=== PATIENT | female | born 1945 | race Caucasian/White ===

== ENCOUNTER 2019-11-25 06:05 | Emergency (ER) | payer MEDICARE ==
[2019-11-25 06:20] VITALS: TEMP 98
[2019-11-25] MEDS ORDERED: HYDROcodone/APAP 5-325MG 1 EACH TAB PO STA (06:28)
[2019-11-25] MEDS ORDERED: PROPOFOL 10 MG/ML 20 ML VIAL IV STA (06:43)
--- NOTE | 2019-11-25 06:51 | ED ---
Upper Extremity HPI <Mari Barnes - Last Filed: 11/25/19 07:03> - General Source: patient, RN notes reviewed Mode of arrival: ambulatory Limitations: no limitations <Scar Garcia - Last Filed: 11/25/19 07:15> - General Chief Complaint: Extremity Injury, Upper Stated Complaint: shoulder dislocation Time Seen by Provider: 11/25/19 06:24 - History of Present Illness Initial Comments: 73-year-old female presents to the emergency Department with chief complaint of a fall. Patient complains of right shoulder pain after a fall. She fell with her arm outstretched. Denies any head injury no loss conscious. She states she has lungs range of motion right shoulder in which this is her dominant side. Patient denies any prior fractures. Denies any prior dislocations. No paresthesias. (Scar Garcia) - Related Data Home Medications Medication Instructions Recorded Confirmed FLUoxetine HCL [PROzac] 10 mg PO DAILY 06/10/15 06/10/15 Losartan/Hydrochlorothiazide 1 dose PO DAILY 06/10/15 06/10/15 [Hyzaar 100-12.5 Tablet] Simvastatin [Zocor] 40 mg PO HS 06/10/15 06/10/15 Allergies Allergy/AdvReac Type Severity Reaction Status Date / Time No Known Allergies Allergy Verified 11/25/19 06:20 Review of Systems ROS Other: All systems not noted in ROS Statement are negative. <Mari Barnes - Last Filed: 11/25/19 07:03> ROS Other: All systems not noted in ROS Statement are negative. <Scar Garcia - Last Filed: 11/25/19 07:15> ROS Statement: Those systems with pertinent positive or pertinent negative responses have been documented in the HPI. Past Medical History Past Medical History: Hypertension Additional Past Medical History / Comment(s): HYPERCHOLESTREMIA History of Any Multi-Drug Resistant Organisms: None Reported Additional Past Surgical History / Comment(s): CATARACT Past Psychological History: No Psychological Hx Reported Smoking Status: Never smoker Past Alcohol Use History: None Reported Past Drug Use History: None Reported <Scar Garcia - Last Filed: 11/25/19 07:15> General Exam Limitations: no limitations General appearance: alert, in no apparent distress Head exam: Present: atraumatic, normocephalic, normal inspection Eye exam: Present: normal appearance, PERRL, EOMI. Absent: scleral icterus, conjunctival injection, periorbital swelling ENT exam: Present: normal exam, normal oropharynx, mucous membranes moist Neck exam: Present: normal inspection, full ROM. Absent: tenderness, meningismus, lymphadenopathy Respiratory exam: Present: normal lung sounds bilaterally, decreased breath sounds. Absent: respiratory distress, wheezes, rales, rhonchi, stridor Cardiovascular Exam: Present: regular rate, normal rhythm, normal heart sounds. Absent: systolic murmur, diastolic murmur, rubs, gallop, clicks Extremities exam: Present: other (Right shoulder there is limited range of motion, there is mild sulcus, neurovascular intact, no tenderness distal humeral region, right forearm) <Scar Garcia M - Last Filed: 11/25/19 07:15> Course Vital Signs 11/25/19 11/25/19 11/25/19 06:13 06:53 07:01 Temperature 98 F Pulse Rate 95 66 71 Respiratory 18 16 12 Rate Blood Pressure 133/69 163/84 139/86 O2 Sat by Pulse 97 100 95 Oximetry 11/25/19 07:06 Temperature Pulse Rate 61 Respiratory 14 Rate Blood Pressure 144/76 O2 Sat by Pulse 97 Oximetry Procedures - Procedural Sedation Procedural Sedation Start Time: 06:58 Procedural Sedation Stop Time: 07:20 Indications: fracture/dislocation reduction ASA Class: II Mallampati Airway Score: 2 Preparation: environmental monitoring specialist applied, pulse oximeter, capnometry used, supplemental O2 applied, suction/airway equipment at bedside, IV secured IV Propofol Dose (mgs): 120 Complications: none Interventions: oxygen applied Patient Tolerated Procedure: well, no complications <Mari Barnes P - Last Filed: 11/25/19 07:03> - Orthopedic Joint Reduction Joint #1 Consent Obtained: written consent Side: right Joint Reduction Location: shoulder Analgesia: procedural sedation Shoulder Technique Used (if applicable): traction/counter-traction, scapula manipulation Post-Reduction Neuro Exam: intact Post-Reduction Vascular Exam: intact Post Reduction X-Ray Obtained: Yes Post Reduction X-Ray Results: reduced Splint Applied: Yes Patient Tolerated Procedure: well, no complications <Scar Garcia M - Last Filed: 11/25/19 07:15> - Orthopedic Joint Reduction Joint #1 Additional Comments: Sling applied (Scar Garcia) Medical Decision Making <Scar Garcia - Last Filed: 11/25/19 07:15> - Medical Decision Making 73-year-old female presents emergency from for fall right shoulder pain. Patient has a right shoulder dislocation. Patient shoulder was reduced and will follow-up with orthopedics. (Scar Garcia) Disposition <Mari Barnes - Last Filed: 11/25/19 07:03> Is patient prescribed a controlled substance at d/c from ED?: No Time of Disposition: 07:14 <Scar Garcia - Last Filed: 11/25/19 07:15> Clinical Impression: Dislocation of right shoulder joint Disposition: HOME SELF-CARE Condition: Stable Instructions (If sedation given, give patient instructions): Shoulder Di slocation (ED) Additional Instructions: Please return to the Emergency Department if symptoms worsen or any other concerns. Referrals: Kiana Mosqueda MD [Primary Care Provider] - 1-2 days Scar Nolbes DO [Doctor of Osteopathic Medicine] - 1-2 days
--- NOTE | 2019-11-25 06:55 | XR ---
EXAM: XR Right Shoulder Complete, 2 or More Views CLINICAL HISTORY: ITS.REASON XR Reason: pain TECHNIQUE: Two or more views of the right shoulder. COMPARISON: No relevant prior studies available. FINDINGS/IMPRESSION: Anterior-inferior shoulder dislocation. No definite fracture however, post-reduction views are recommended. Degenerative changes of the acromioclavicular joint.
[2019-11-25 07:13] VITALS: RESP 14
[2019-11-25 07:14] VITALS: BP 130/71; PULSE 62
[2019-11-25] MEDS ORDERED: ACET/COD 300 MG/30 MG STARTER PACK 6 TAB BTL PO STA (07:15)
--- NOTE | 2019-11-25 08:09 | XR ---
Right shoulder HISTORY: Post reduction Single frontal view of the right shoulder correlated prior exam same date earlier time There's been interval reduction of patient's shoulder dislocation. Acromion is superimposed over the humeral head which could possibly be projectional, as indicated consider additional views. No evident fracture. IMPRESSION: Post reduction as described.
== END 2019-11-25 07:42 | disposition home or self-care (01) ==
LOC: EC 06:05
DX: S43.004A Unspecified dislocation of right shoulder joint, initial encounter (principal); I10 Essential (primary) hypertension; E78.00 Pure hypercholesterolemia, unspecified; Z79.899 Other long term (current) drug therapy; W01.0XXA Fall on same level from slipping, tripping and stumbling without subsequent striking against object, initial encounter; Y92.009 Unspecified place in unspecified non-institutional (private) residence as the place of occurrence of the external cause
CPT/HCPCS: 99283; 99152; 23650; 96374; 73020; 73030; J2704

== ENCOUNTER → 2023-03-29 | Outpatient (CLI) | payer MEDICARE ==
--- NOTE | 2023-03-29 12:13 | P.SLEEP ---
History of Present Illness DATE: 03/29/2023 CONSULTATION/NEW PATIENT EVALUATION HISTORY OF PRESENT ILLNESS/SLEEP-WAKE EVALUATION: 77-year-old lady had been evaluated in the sleep center for possible obstructive sleep apnea hypopnea syndrome. SLEEP SCHEDULE: Usually sleep schedule from 10 PM to 6 AM 7 days a week. FALLING ASLEEP: No problems with falling asleep, no TV in bedroom. DURING SLEEP: Patient sleeps in different positions with snoring and multiple awakenings from sleep. No history of nocturia. No history of hypnogogical hallucinations, sleep paralysis, or cataplexy. DURING THE DAY/WAKE STATE: In the morning patient wake up tired. Frostproof sleepiness scale is 3. Patient may take nap at 2 PM. PAST MEDICAL HISTORY: Hypertension, depression, glaucoma, knee arthritis, hyperlipidemia. PAST SURGICAL HISTORY: Bilateral surgery for cataract, surgery for nasal septum deviation. MEDICATIONS: Simvastatin 40 mg once a day, Prozac 10 mg once a day, losartan/ hydrochlorothiazide 100-12.5 mg, eyedrops. SOCIAL HISTORY: Negative for smoking or using alcohol. FAMILY HISTORY:Hypertension, hyperlipidemia, arthritis, cancer, diabetes, thyroid problems. REVIEW OF SYSTEMS:Snoring, multiple awakenings from sleep. No fevers. No double vision. No recent chest pain. No shortness of breath. No abdominal pain. No bleeding episodes. No blood in urine. No seizure episodes. PHYSICAL EXAMINATION: GENERAL: A pleasant patient without any distress. VITAL SIGNS: BP 105/67 , HR 88 , RR 18 , weight 205.2 pounds, height 5 foot 6 inches, body mass index 33.0 . HEENT: PERRLA, EOMI. Evaluation of oropharynx showed tongue protrudes midline, low position of soft palate Mallampati 4. NECK: Supple. No JVD. Thyroid is not palpable. 15-1/3 inches in circumference. LUNGS: Clear to percussion and to auscultation. Good air exchange. No wheezing or rhonchi. HEART: S1, S2 regular. No murmurs, gallops or rubs. ABDOMEN: Soft and nontender. Bowel sounds are present. No organomegaly appreciated. EXTREMITIES: No clubbing or cyanosis. POLISHING MACHINE OPERATOR: Awake, alert, and oriented x3. Cranial nerves 2 to 7 intact. There is no fasciculation or atrophy noted. No focal deficits observed. ASSESSMENT: 1. Snoring, multiple awakenings from sleep, extremely low position of soft palate. Obstructive sleep apnea hypopnea syndrome . 2. Mild obesity, BMI 33.0 . 3. Hypertension . 4. Depression . 5 hyperlipidemia . 6 . History of glaucoma . 7. History of knee arthritis . 8. Status post bilateral cataract surgery . 9 . Status post surgical treatment for nasal septum deviation . PLAN: 1. Polysomnography for evaluation of patient's breathing during sleep. 2. Following plan after reading sleep test. Patient would like to consider oral appliances. 3. Preferable position during sleep on the side. 4. No driving if patient feels any sleepiness. Patient is aware of civil and criminal liability for unsafe driving. 5. Sleep hygiene with regular sleep time for at least 7.5-8 hours. 6. Watching weight. Thank you very much for referring this patient for consultation. Sincerely, Landon Bradshaw MD, PhD, FAASM. Diplomat of [place] [employer], Sleep Medicine Board by [place] [employer] [place] [employer] Claim Professional of [facility] [place] Past Medical History Past Medical History: Hypertension Additional Past Medical History / Comment(s): HYPERCHOLESTREMIA History of Any Multi-Drug Resistant Organisms: None Reported Additional Past Surgical History / Comment(s): CATARACT Past Psychological History: No Psychological Hx Reported Past Alcohol Use History: None Reported Past Drug Use History: None Reported Medications and Allergies Home Medications Medication Instructions Recorded Confirmed Type FLUoxetine HCL [PROzac] 10 mg PO DAILY 06/10/15 06/10/15 History Losartan/Hydrochlorothiazide 1 dose PO DAILY 06/10/15 06/10/15 History [Hyzaar 100-12.5 Tablet] Simvastatin [Zocor] 40 mg PO HS 06/10/15 06/10/15 History Allergies Allergy/AdvReac Type Severity Reaction Status Date / Time No Known Allergies Allergy Verified 11/25/19 06:20 Sleep Note - Sleep Note Sleep Note: Temperature: Pulse Rate: Respiratory Rate: Blood Pressure: SpO2: Height: Weight: BMI: Neck Circumference:
== END ==
LOC: 3 N SLEEP 11:01
PROVIDERS: ATTEND Internal Medicine
DX: G47.33 Obstructive sleep apnea (adult) (pediatric) (principal); E66.9 Obesity, unspecified; I10 Essential (primary) hypertension; F32.A Depression, unspecified; E78.00 Pure hypercholesterolemia, unspecified; E78.5 Hyperlipidemia, unspecified; J34.2 Deviated nasal septum; Z68.33 Body mass index [BMI] 33.0-33.9, adult; Z87.39 Personal history of other diseases of the musculoskeletal system and connective tissue; Z98.41 Cataract extraction status, right eye; Z98.42 Cataract extraction status, left eye; Z98.890 Other specified postprocedural states; Z79.899 Other long term (current) drug therapy
CPT/HCPCS: 99202

== ENCOUNTER 2023-05-10 19:28 | Outpatient (CLI) | payer MEDICARE ==
--- NOTE | 2023-05-17 15:13 | P.PCN ---
Description of Procedure: POLYSOMNOGRAPHY REPORT PROCEDURE(S)/DATE(S): Polysomnography 05/10/2023 CLINICAL: Patient has been seen in the sleep center for evaluation of obstructive sleep apnea-hypopnea syndrome. Please see my consultation. Sleep study has been done for evaluation of patient breathing during the sleep. PROCEDURE: The standard montage for clinical polysomnography included the electroencephalogram, the electrooculogram, the mentalis surface electromyography and Lead II cardiography. The respiratory battery consisted of measurements of nasal/buccal air flow, pressure transducer measurements from nose, thoracic and/or abdominal effort and intercostal surface electromyography. Video monitoring has been done to check for any parasomnia events. Nocturnal oxyhemoglobin saturations were obtained by finger oximetry. Step-chow titration with positive airway pressure was utilized to control the respiratory events, if necessary. RESULTS: During the diagnostic sleep study sleep efficiency was extremely short 52.6 %. Latency to sleep onset was significantly prolonged to 54.5 min. Sleep architecture showed stage NI was slightly increased 8.9 %, Delta sleep was absent 0 %, REM sleep was absent 0 %. Respiratory channel showed 0 obstructive apneas, 0 mixed apneas, 0 central apneas, 0 hypopneas with lowest oxygen level 88%. Total apnea hypopnea index was 0. Heart rate was in the range between 67 and 74, average 70. EMG showed 34.2 periodic limb movements per hour with 0 micro-arousals per hour. IMPRESSIONS: 1. No significant respiratory abnormalities have been documented during the sleep study, no significant oxygen desaturation during sleep. 2. Significant periodic limb movements have been documented, but without related micro-arousals. 3. Loud snoring have been documented during the sleep study. Please see other impressions from consultation PLAN: 1. I will see patient for follow-up visit to explain results of the test and recommendations. 2. Losing weight program. 3. Sleep hygiene with regular time in bed for at least 7-1/2 hours. 4. No driving if feeling sleepiness. 5. Please check iron profile including ferritin level. Low level of iron may increase the risk for periodic limb movements. Thank you very much for allowing me to participate in the management of your patient. Sincerely, Landon Bradshaw MD, PhD, FAASM. Diplomat of [place] [employer], Sleep Medicine Board by [place] [employer] Inspector [employer] [facility] [place]
== END 2023-05-11 05:20 | disposition home or self-care (01) ==
LOC: 3 N SLEEP 19:28
PROVIDERS: ATTEND Internal Medicine
DX: G47.33 Obstructive sleep apnea (adult) (pediatric) (principal); G47.61 Periodic limb movement disorder; R06.83 Snoring
CPT/HCPCS: 95810

== ENCOUNTER 2023-12-31 13:58 | Emergency (ER) | payer MEDICARE ==
[2023-12-31] MEDS ORDERED: HYDROcodone/APAP 7.5-325MG 1 EACH TAB ONE (14:21)
[2023-12-31] MEDS ORDERED: LIDOCAINE 1% INJ 10MG/ML (20 ML MDV) ONE (14:22)
[2023-12-31] MEDS ORDERED: ACETAMINOPHEN TAB 325 MG TAB ONE (14:22)
[2023-12-31] MEDS ORDERED: ACET/COD 300 MG/30 MG STARTER PACK 6 TAB BTL PO ONE (16:50)
--- NOTE | 2024-01-22 16:01 | CT ---
Patient Shanna Blanton ID [id number] Order # EXAMINATION TYPE: CT brain althea ribera DATE OF EXAM: 12/31/2023 COMPARISON: No comparison available on downtime PACS. HISTORY: Fall, hit concrete CT DLP: 1411.9 mGycm, Automated exposure control for dose reduction was used. CONTRAST: Patient injected with 0 mL of Isovue 300. CT of the brain is performed utilizing 3 mm thick sections through the posterior fossa and 3 mm thick sections through the remaining calvarium. Study is performed within 24 hours of arrival to the hospital. No abnormal hyperdensity is present to suggest an acute intracranial hemorrhage. No mass lesion is evident. No acute infarcts are evident. Ventricles and sulci are appropriate for the patient age. No acute fractures are evident. Paranasal sinuses and mastoid air cells within the [id number] are clear. IMPRESSIONS: 1. No acute intracranial process. Follow-up MRI can be performed as clinically indicated. 2. There may be some mild periventricular white matter changes. CT cervical spine. COMPARISON: None CT of the cervical spine is performed in the axial plane at 2 mm thick sections. Reconstructed image s in the coronal, and sagittal plane are reviewed on the computer. No acute fractures are evident. Vertebral body alignment is normal. Degenerative disc changes present with loss of disc height for C4-5 C5-6 and C6-7. Vertebral body heights are preserved. No spinal canal stenosis is evident. Note is made of some endplate spurring present at C4-5 C5-6-7 wi thout spinal stenosis. Uncovertebral joint V is severe foraminal stenosis present C4-5 bilaterally. Some facet hypertrophy i s present. Moderate to severe foraminal narrowing is present C5-6 from acute. There is left severe fo raminal stenosis C6-7. IMPRESSION: 1. Degenerative disc changes without spinal canal stenosis. 2. Severe foraminal stenosis due to uncovertebral joint hypertrophy upper to mid cervical spine discu ssed above
--- NOTE | 2024-01-30 11:24 | XR ---
Patient Shanna Blanton ID [id number] Order # EXAMINATION TYPE: XR hand complete bilateral DATE OF EXAM: 12/31/2023 COMPARISON: No comparison available on downtime PACS. HISTORY: Bilateral hand pain following fall TECHNIQUE: Bilateral hands 3 views each FINDINGS: Right hand: There is a transverse fracture of the proximal metaphyseal fifth metacarpal. No additiona l fractures are identified. Mild soft tissue swelling overlies the fracture site. Joint spaces are pr eserved. Left hand: No acute fracture or dislocation evident. Joint spaces are preserved. Soft tissues appear unremarkable. Follow up exams can be performed 7-10 days from acute trauma for continued pain. IMPRESSION: 1. Transverse fracture base of fifth metacarpal right hand. 2. No acute osseous abnormality left hand.
== END 2023-12-31 17:45 | disposition home or self-care (01) ==
LOC: EC 13:58 → EDSTATUS 16:26 → EC 17:45
DX: W19.XXXA Unspecified fall, initial encounter
CPT/HCPCS: 12011; 70450; 72125; 99283